=== PATIENT | male | born 1955 | race Caucasian/White ===

== ENCOUNTER 2024-05-11 08:52 | Oncology outpatient (recurring) (ONCR) | payer MEDICARE, SELFPAY ==
--- NOTE | 2024-05-11 14:49 | N.ONRAD NP_ITS ---
Radiation Oncology New Patient Visit Patient: Kirk Cabrales MR#: [id number] : 1955 Age: 68 Sex: Male Dictated by: Dr. Arthur Correa Date of Service: 05/11/2024 Referring Physician(s) : Dr. Abdiel Vyas Diagnosis: Clinical ST IIB(T1c, N0, M0) G.S 3 +4 G2 adenocarcinoma of the prostate s/p TRNBx 02/29/2024 with PSA at dx 11/2023 7.59. Radiotherapy to date: Summary > No prior radiation therapy. Chief Complaint / History of Present Illness: Mr Cabrales was seen for hernia repair. PSA 11/22/2023 was elevated at 7.59. His last PSA was several years ago and level not available. See my urology. MRI 02/08/2024 left peripheral zone lesion 1.3 cm, smaller right side lesion 3.6 mmm in diameter. .No adenopathy or osseous lesions seen. TRNBX 03/31/2024 1 G.S. 3 + 3 , 4 G.S. 3 + 4 biopsies involved. PSA post bx 12.71. He had essentially no urinary sxs before dx with good stream 0to1 x nocturia . Now on Flomax with I-PSS score of 3. He has chosen to undergo primary radiation and has a Space OAR gel spacer placed on 05/09/2024. Decipher score done but not yet available. ADT is being considered by the urologist. Patient is not yet committed to adjuvant ADT. Current Medications: Flomax Allergies: Penicillin Medical History: No history of collagen vascular disease. No previous radiation therapy. History of elevated PSA, erectile dysfunction Surgical History: Umbilical hernia repair, colonoscopy, prostate bx Family History: Father () bladder cancer, Mother () heart attack, Paternal Grandfather () lung cancer, Maternal Grandmother () colon cancer Social History: x 45 years. 1 son and 1 daughter. Retired front load trash truck driver x 5 years. Current every day tobacco smoker down from 1 ??? ppd to ??? ppd. 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 Current Complaints / Review of Systems: . Vital Signs: Performed on 05/11/2024 8:59 AM BMI - 24.565 kg/m2 (high), Height - 70 in, Weight - 171.2 lbs, Temperature - 96.6 f, Pulse - 73 /min, Respiration - 16 /min, O2 Sat - 98 %, Pain - 0, Fatigue - 0 and BP - 163/ 81 mm(hg)(high/). Physical Exam: Robust in NAD. Poor dentition. No palpable adenopathy. Rectal soft prostate but likely altered exam by Space AOR placement. Performance Status: ECOG 0 Pathology: See above. Lab: See above Imaging: See HPI Impression: Favorable intermediate risk St IIB (T1c, N0, M0) G.S. 3 + 4 adenocarcinoma of the prostate. Good candidate for primary radiation. He has marginal benefit from ADT. I will leave final decision to patient and his urologist. Plan on 70 Gy in 28 fractions with IMRT treatment optimization. Also discussed critical need for smoking cessation. Plan: Signed by: 05/11/2024 2:47:33 PM <<Signature on File>> Time spent with patient: 60 minutes CPT Code: CPT Code:
== END 2024-05-11 23:59 | disposition home or self-care (01) ==
PROVIDERS: Visit Provider Radiology Radiation Oncology
DX: C61 Malignant neoplasm of prostate (principal); F17.210 Nicotine dependence, cigarettes, uncomplicated
CPT/HCPCS: 99205

== ENCOUNTER 2024-05-26 08:39 | Oncology outpatient (recurring) (ONCR) | payer MEDICARE, SELFPAY ==
--- NOTE | 2024-05-23 09:57 | ONCRAD TMN_ITS ---
Radiation Oncology Weekly Treatment Management Patient: Kirk Cabrales MR#: [id number] : 1955 Attending Physician: Dr. Aylin Anthony Date of Service: 05/23/2024 Fractions: 5 out of 28 Referring Physician(s) : Diagnosis: C61 - Malignant neoplasm of prostate, Diagnosed 05/15/2024 (Active) Radiotherapy to date: Course: Prostate 2023, Treatment Site: [id number], Ref. ID: [id number], Energy: 15X, Dose/Fx (cGy): 250, #Fx: , Dose Correction (cGy): 0, Total Dose Delivered (cGy): 1,250, Start Date: 05/17/2024, End Date: 05/23/2024, Elapsed Days: 6 Reason for visit: The patient is being seen today as part of their regularly scheduled weekly on treatment visits to assess for acute toxicities from radiotherapy. Review of Systems: Patient has noticed some mild increased frequency of bowel movements with 2 in the morning instead of 1. He also has some issues with the second treatment as he had discontinued his Flomax. He apparently had trouble with burning and frequency for that 24 hours and then started on the Flomax again which have resolved symptoms. Vital Signs: Performed on 05/23/2024 8:44 AM BMI - 24.651 kg/m2 (high), Height - 70 in, Weight - 171.8 lbs, Temperature - 97.4 f, Pulse - 78 /min, Respiration - 16 /min, O2 Sat - 100 %, Pain - 0, Fatigue - 0 and BP - 141/ 88 mm(hg)(high/). Physical Exam: No changes on exam Imaging: Radiation therapy imaging related to accurate target localization (i.e. KV, MV and CBCT) was reviewed. Appropriate changes, if any, were made to ensure treatment accuracy. Plan: I have asked him to go ahead and stay on his Flomax at least through the duration of his treatment. We reviewed the side effects both acute and long-term again today. We talked about the follow-up schedule and how it can take up to a year to year and a half for his PSA to arrive at its new normal. His last PSA prior to starting treatment was approximately 14. Will continue with his treatments as planned. Signed by: Dr. Aylin Anthony 05/23/2024 9:56:07 AM
== END 2024-05-26 23:59 | disposition home or self-care (01) ==
PROVIDERS: Visit Provider Radiology Radiation Oncology
DX: Z51.0 Encounter for antineoplastic radiation therapy (principal); C61 Malignant neoplasm of prostate
CPT/HCPCS: 77300; 77301; 77334; 77336; 77338; 77385; 99024

== ENCOUNTER 2024-06-07 08:44 | Oncology outpatient (recurring) (ONCR) | payer MEDICARE, SELFPAY ==
--- NOTE | 2024-05-30 09:30 | ONCRAD TMN_ITS ---
Radiation Oncology Weekly Treatment Management Patient: Keron Feliciano MR#: [id number] : 1955> Attending Physician: Dr. Aylin Anthony Date of Service: 05/30/2024 Fractions: 10 out of 28 Referring Physician(s) : Diagnosis: C61 - Malignant neoplasm of prostate, Diagnosed 05/15/2024 (Active) Radiotherapy to date: Course: Prostate 2023, Treatment Site: [id number], Ref. ID: [id number], Energy: 15X, Dose/Fx (cGy): 250, #Fx: , Dose Correction (cGy): 0, Total Dose Delivered (cGy): 2,500, Start Date: 05/17/2024, Elapsed Days: 13 Reason for visit: The patient is being seen today as part of their regularly scheduled weekly on treatment visits to assess for acute toxicities from radiotherapy. Review of Systems: Patient says he had more diarrhea after eating cheesecake and having a glass of milk. He says this is fairly normal as he has a lactose intolerance. He has noticed some increased urgency and burning with urination. The worst day was when he forgot to drink enough water and take his Flomax. Vital Signs: Performed on 05/30/2024 9:00 AM BMI - 24.45 kg/m2 (high), Height - 70 in, Weight - 170.4 lbs, Temperature - 97.1 f, Pulse - 81 /min, Respiration - 18 /min, O2 Sat - 98 %, Pain - 0, Fatigue - 2 and BP - 157/ 89 mm(hg)(high/). Physical Exam: No changes on exam Imaging: Radiation therapy imaging related to accurate target localization (i.e. KV, MV and CBCT) was reviewed. Appropriate changes, if any, were made to ensure treatment accuracy. Plan: I talked with him about using Azo if needed for the dysuria. He will otherwise monitor the symptoms. We talked about using Imodium for the diarrhea and only taking 1 dose to see what would happen subsequently. Will otherwise continue with his treatments as planned. Signed by: Dr. Aylin Anthony 05/30/2024 9:28:33 AM
--- NOTE | 2024-06-06 09:29 | ONCRAD TMN_ITS ---
Radiation Oncology Weekly Treatment Management Patient: Kirk Cabrales MR#: [id number] : 1955 Attending Physician: Dr. Aylin Anthony Date of Service: 06/06/2024 Fractions: 15 out of 28 Referring Physician(s) : Diagnosis: C61 - Malignant neoplasm of prostate, Diagnosed 05/15/2024 (Active) Radiotherapy to date: Course: Prostate 2023, Treatment Site: [id number], Ref. ID: [id number], Energy: 15X, Dose/Fx (cGy): 250, #Fx: 15 , Dose Correction (cGy): 0, Total Dose Delivered (cGy): 3,750, Start Date: 05/17/2024, Elapsed Days: 20 Reason for visit: The patient is being seen today as part of their regularly scheduled weekly on treatment visits to assess for acute toxicities from radiotherapy. Review of Systems: Patient continues to have frequent stools. He has 1 normal stool in the morning and then 2-3 small soft stool subsequently Vital Signs: Performed on 06/06/2024 8:53 AM BMI - 24.393 kg/m2 (high), Height - 70 in, Weight - 170.0 lbs, Temperature - 97.5 f, Pulse - 75 /min, Respiration - 18 /min, O2 Sat - 96 %, Pain - 0, Fatigue - 0 and BP - 128/ 85 mm(hg). Physical Exam: No changes on exam Imaging: Radiation therapy imaging related to accurate target localization (i.e. KV, MV and CBCT) was reviewed. Appropriate changes, if any, were made to ensure treatment accuracy. Plan: We talked about using Imodium if he needed to for the frequent stools. He declined. Will continue with his treatments as planned. Signed by: Dr. Aylin Anthony 06/06/2024 9:27:59 AM
== END 2024-06-10 23:59 | disposition home or self-care (01) ==
PROVIDERS: Visit Provider Radiology Radiation Oncology
DX: Z51.0 Encounter for antineoplastic radiation therapy (principal); C61 Malignant neoplasm of prostate
CPT/HCPCS: 77336; 77385; 99024

== ENCOUNTER 2024-06-27 10:38 | Oncology outpatient (recurring) (ONCR) | payer MEDICARE, SELFPAY ==
--- NOTE | 2024-06-13 09:13 | ONCRAD TMN_ITS ---
Radiation Oncology Weekly Treatment Management Patient: Keron Feliciano MR#: [id number] : 1955> Attending Physician: Dr. Aylin Anthony Date of Service: 06/13/2024 Fractions: 18 out of 28 Referring Physician(s) : Diagnosis: C61 - Malignant neoplasm of prostate, Diagnosed 05/15/2024 (Active) Radiotherapy to date: Course: Prostate 2023, Treatment Site: [id number], Ref. ID: [id number], Energy: 15X, Dose/Fx (cGy): 250, #Fx: , Dose Correction (cGy): 0, Total Dose Delivered (cGy): 4,500, Start Date: 05/17/2024, Elapsed Days: 27 Reason for visit: The patient is being seen today as part of their regularly scheduled weekly on treatment visits to assess for acute toxicities from radiotherapy. Review of Systems: He is actually feeling quite well today. The symptoms he was having related to his bowel and bladders have resolved. He actually had some constipation over the weekend and had to eat some ice cream. Vital Signs: Performed on 06/13/2024 8:49 AM BMI - 24.436 kg/m2 (high), Height - 70 in, Weight - 170.3 lbs, Temperature - 97.3 f, Pulse - 78 /min, Respiration - 18 /min, O2 Sat - 96 %, Pain - 0, Fatigue - 0 and BP - 153/ 90 mm(hg)(high/). Physical Exam: No changes on exam Imaging: Radiation therapy imaging related to accurate target localization (i.e. KV, MV and CBCT) was reviewed. Appropriate changes, if any, were made to ensure treatment accuracy. Plan: Will continue with his treatments as planned Signed by: Dr. Aylin Anthony 06/13/2024 9:11:43 AM
--- NOTE | 2024-06-20 09:24 | ONCRAD TMN_ITS ---
Radiation Oncology Weekly Treatment Management Patient: Kirk Cabrales MR#: [id number] : 1955 Attending Physician: Dr. Aylin Anthony Date of Service: 06/20/2024 Fractions: 23 out of 28 Referring Physician(s) : Diagnosis: C61 - Malignant neoplasm of prostate, Diagnosed 05/15/2024 (Active) Radiotherapy to date: Course: Prostate 2023, Treatment Site: [id number], Ref. ID: [id number], Energy: 15X, Dose/Fx (cGy): 250, #Fx: , Dose Correction (cGy): 0, Total Dose Delivered (cGy): 5,750, Start Date: 05/17/2024, Elapsed Days: 34 Reason for visit: The patient is being seen today as part of their regularly scheduled weekly on treatment visits to assess for acute toxicities from radiotherapy. Review of Systems: Patient continues to have increased frequency of both urination and bowel movements. He also has some urgency with urination. Vital Signs: Performed on 06/20/2024 8:58 AM BMI - 24.622 kg/m2 (high), Height - 70 in, Weight - 171.6 lbs, Temperature - 96.9 f, Pulse - 69 /min, Respiration - 16 /min, O2 Sat - 98 %, Pain - 0, Fatigue - 0 and BP - 151/ 86 mm(hg)(high/). Physical Exam: No changes on exam Imaging: Radiation therapy imaging related to accurate target localization (i.e. KV, MV and CBCT) was reviewed. Appropriate changes, if any, were made to ensure treatment accuracy. Plan: He has 5 treatments remaining. We talked about a follow-up with a PSA but he will be seeing Dr. Vyas about the same time so we will need to get his PSA for Dr. Vyas prior to his appointment on July 28. I reassured him that all of his symptoms should gradually go away once he completes his treatments. Signed by: Dr. Aylin Anthony 06/20/2024 9:23:30 AM
--- NOTE | 2024-06-27 12:36 | N.ONRD TS_ITS ---
Radiation Oncology Treatment Summary/ OTV Patient: Kirk Cabrales, MR#: [id number] : 1955 Age: 68 Sex: Male Dictated by: Dr. Aylin Anthony Date of Service: 06/27/2024 Referring Physician(s) : Diagnosis: C61 - Malignant neoplasm of prostate, Diagnosed 05/15/2024 (Active) Radiotherapy to Date: Course: Prostate 2023, Treatment Site: [id number], Ref. ID: [id number], Energy: 15X, Dose/Fx (cGy): 250, #Fx: , Dose Correction (cGy): 0, Total Dose Delivered (cGy): 7,000, Start Date: 05/17/2024, End Date: 06/27/2024, Elapsed Days: 41 Vital Signs: Performed on 06/27/2024 11:16 AM BMI - 24.594 kg/m2 (high), Height - 70 in, Weight - 171.4 lbs, Temperature - 97.9 f, Pulse - 81 /min, Respiration - 16 /min, O2 Sat - 98 %, Pain - 0, Fatigue - 0 and BP - 161/ 82 mm(hg)(high/). Clinical Summary: The patient tolerated RT well. He has some mild bowel or bladder changes which she tolerated well. Plan: End of treatment today. Continue on the above medication until the skin reaction resolves. Follow up in one month. Patient is seeing Dr. Vyas on 07/31/24 and will have PSA drawn then. Signed by: Dr. Aylin Anthony>06/27/2024 12:34:52 PM <<Signature on File>>
== END 2024-06-27 23:59 | disposition home or self-care (01) ==
PROVIDERS: Visit Provider Radiology Radiation Oncology
DX: Z51.0 Encounter for antineoplastic radiation therapy (principal); C61 Malignant neoplasm of prostate
CPT/HCPCS: 77336; 77385; 99024

== ENCOUNTER 2024-08-02 08:55 | Oncology outpatient (recurring) (ONCR) | payer MEDICARE, SELFPAY ==
--- NOTE | 2024-08-02 09:53 | ONCRAD EPV_ITS ---
Radiation Oncology Established Patient Visit Patient: Keron Bradley [id number] : 1955> Age: 69> Sex: Male> Dictated by: Dr. Aylin Anthony Date of Service: 08/02/2024 Referring Physician(s) : Diagnosis: C61 - Malignant neoplasm of prostate, Diagnosed 05/15/2024 (Active) Radiotherapy to Date: Course: Prostate 2023, Treatment Site: [id number], Ref. ID: [id number], Energy: 15X, Dose/Fx (cGy): 250, #Fx: 28 / 28, Dose Correction (cGy): 0, Total Dose Delivered (cGy): 7,000, Start Date: 05/17/2024, End Date: 06/27/2024, Elapsed Days: 41 Current History: Patient returns for his 1 month check. His bowel bladder habits have began to improve. He is no longer taking his Flomax. He has a good appetite. He denies any new aches or pains. His PSA drawn today was 2.54 as opposed to his 7.59 prior to treatment Current Medications: Allergies: Current Complaints / Review of Systems: . Vital Signs: Performed on 08/02/2024 9:15 AM BMI - 24.708 kg/m2 (high), Height - 70 in, Weight - 172.2 lbs, Temperature - 97.6 f, Pulse - 79 /min, Respiration - 18 /min, O2 Sat - 98 %, Pain - 0, Fatigue - 0 and BP - 135/ 83 mm(hg). Physical Exam: General: Alert and oriented x 3. No acute distress. HEENT: Normocephalic atraumatic. Pupils equal, sclera clear, extraocular muscles intact LUNGS: Respiratory rate is regular nonlabored HEART regular rate and rhythm. ABDOMEN: Fairly nonprotuberant EXTREMITIES: No peripheral edema is identified. NEUROLOGIC: Alert and orient x 3. Gait and speech within normal limits Performance Status: 100 Lab: None pending. Pathology: Primary, c61 - malignant neoplasm of prostate, Diagnosed 05/15/2024 (active) . Imaging: See HPI Impression: Adenocarcinoma the prostate Plan: At this time he is a month out from treatment and is recovering nicely. I reviewed the results of his PSA today. He will be seeing Dr. Vyas in a couple of weeks. Will make sure we fax that PSA to Dr. Vyas's office. I have asked the patient to call once he has met with Dr. Vyas and we can help him establish getting his PSA drawn every 3 months at his local physician. I would otherwise see him back once a year and monitor his PSA every 3 months. Signed by: 08/02/2024 9:52:19 AM <<Signature on File>> Time spent with [email or web address]: CPT Code: CPT Code:
== END 2024-08-11 23:59 | disposition home or self-care (01) ==
LOC: ONCMED 08:55
PROVIDERS: Visit Provider Radiology Radiation Oncology
DX: Z08 Encounter for follow-up examination after completed treatment for malignant neoplasm (principal); C61 Malignant neoplasm of prostate; Z92.3 Personal history of irradiation
CPT/HCPCS: 36415; 84153; 99024